=== PATIENT | female | born 1975 | race Caucasian/White ===

== ENCOUNTER 2023-07-15 12:54 | Outpatient (CLI) | payer BC, SELFPAY ==
--- NOTE | ~2023-07-15 | US_ITS ---
EXAMINATION: US FNA w image guidance DATE: 07/15/2023 13:45 INDICATION: Enlarging right thyroid nodule TECHNIQUE: A time-out was performed to verify the patient's name, date of , and procedure to be performed . The procedure and its benefits and risks were discussed with the patient. Risks specifically discus sed included bleeding and infection. The patient understood the risks and agreed to proceed. The neck was prepped and draped in the usual sterile manner. 3 mL 1% lidocaine was used for local anesthesia . 6 passes were made with a 25G needle into the lesion. Appropriate needle location was documented with continuous sonographic guidance. A sterile bandage was applied. There were no immediate compli cations. FINDINGS: Grayscale ultrasound images demonstrate biopsy needles advanced into a 2.4 cm predominantly isoechoic solid, wider than tall TI RADS 3 right thyroid nodule with smooth margins and without internal echog enic foci. IMPRESSION: 1. Successful ultrasound-guided fine needle aspiration of the enlarging 2.4 cm TI-RADS 3 right thyro id nodule. Reviewed, dictated and finalized at location A. APPLICATION DEVELOPMENT MANAGER IMPRESSION: 1. Successful ultrasound-guided fine needle aspiration of the enlarging 2.4 cm TI-RADS 3 right thyroid nodule.
== END 2023-07-15 12:55 | disposition home or self-care (01) ==
LOC: ANHIMG 12:56
PROVIDERS: PCP Family Medicine; Visit Provider Family Medicine
DX: E04.1 Nontoxic single thyroid nodule (principal)
CPT/HCPCS: 10005; 10006; 88172; 88173; 88305